=== PATIENT | female | born 1975 | race Caucasian/White ===

== ENCOUNTER 2018-04-24 15:57 | Emergency (ER) | payer OTHER ==
[~2018-04-24] VITALS: Ht 170.2 cm; Wt 81.8 kg
[2018-04-24 16:21] VITALS: Ht 170.2 cm; Wt 81.8 kg
[2018-04-24] MEDS ORDERED: ULTRAM50 MG PO (19:38)
[2018-04-24 19:58] VITALS: BP 162/103
== END 2018-04-24 19:59 | disposition home or self-care (01) ==
LOC: D.ER 15:57
DX: S60.212A Contusion of left wrist, initial encounter (principal); W18.30XA Fall on same level, unspecified, initial encounter; Y93.89 Activity, other specified; Y92.019 Unspecified place in single-family (private) house as the place of occurrence of the external cause

== ENCOUNTER 2018-09-02 20:04 | Emergency (ER) | payer OTHER ==
[~2018-09-02] VITALS: Ht 170.2 cm; Wt 72.7 kg
[~2018-09-02 20:04] MED LIST: ULTRAM50 MG PO
[2018-09-02 20:10] VITALS: Ht 170.2 cm; Wt 72.7 kg
[2018-09-02] MEDS ORDERED: PHENERGAN DM SYR5 ML PO (21:14)
[2018-09-02] MEDS ORDERED: VIBRAMYCIN 100100 MG PO (21:14)
[2018-09-02 21:51] VITALS: BP 110/66
== END 2018-09-02 21:51 | disposition home or self-care (01) ==
LOC: D.ER 20:04
DX: J06.9 Acute upper respiratory infection, unspecified (principal); J40 Bronchitis, not specified as acute or chronic; R09.89 Other specified symptoms and signs involving the circulatory and respiratory systems